=== PATIENT | female | born 1945 | race Caucasian/White ===

== ENCOUNTER 2023-11-30 09:55 | Outpatient (AMB) | payer MEDICARE, SELFPAY ==
--- NOTE | 2023-11-30 10:01 | A.OFFVIS_ITS ---
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 The patient does not have any complaints no vulvar irritation was prescribed nystatin/triamcinolone chronically 3 times a week for few years. No history of vulvar lesions, discolorations or abnormal Pap smears PFSH Medical History Osteopenia Arthritis Surgical History H/O hand surgery History of bunionectomy Hx of hysterectomy H/O eye surgery Family History Mother Heart disease Heart attack Father HTN (hypertension) Prostate cancer Brother Prostate cancer Sister Uterus cancer Breast cancer Social History Household Members Other:: daughter Housing: House Alcohol intake: never Patient Tobacco Use Status: Never used Tobacco Current occupational status: retired Sexually active: No Sexual orientation: Straight/Heterosexual Gender identity: Female Female Reproductive History Menstrual Total pregnancies: 2 Full term: 2 Number of Living Children: 2 Review of Systems Const All systems reviewed & are unremarkable except as noted in HPI and below Physical Exam Vital Signs: Last Vital Signs BP 120/70 11/30/23 10:03 BMI result Body Mass Index 29.9 General: Yes no CVA tenderness External Female Exam: normal external appearance and normal appearance of the urethra Speculum Exam - Vagina: normal appearance of the vagina, normal palpation, no lesions and no masses Speculum Exam - Cervix: normal appearance of the cervix, normal palpation, no lesions, no masses and nontender Bimanual exam- vagina & uterus: normal bimanual exam, normal palpation, uterine size normal, normal palpation, uterine shape normal, No Cervical tenderness present and non-tender Bimanual Exam- Adnexa, other: normal adnexae Back/Spine/Pelvis Back: no CVA tenderness Assessment & Plan Assessment & Plan (1) Normal vulvar exam: Code(s): Z01.419 - Encounter for gynecological examination (general) (routine) without abnormal findings Category: Medical Plan: Discussed with the patient the normal findings on pelvic exam with no evidence of vulvar pathology no leukoplakia lesions or any abnormalities. Recommended discontinuation of nystatin/triamcinolone cream. Instructions given the patient to call in case of any change or any new symptoms/irritation/lesions. All questions answered, the patient verbalized understanding Coding Level of Care Code New Pt Level 3 (28393) Diagnoses Normal vulvar exam Z01.419
[2023-11-30 10:03] VITALS: BP 120/70; BMI 29.9
== END 2023-11-30 14:21 | disposition home or self-care (01) ==
LOC: HO.HWS 09:55
PROVIDERS: PCP Internal Medicine; Visit Provider Obstetrics & Gynecology
DX: Z01.419 Encounter for gynecological examination (general) (routine) without abnormal findings (principal); Z71.1 Person with feared health complaint in whom no diagnosis is made
CPT/HCPCS: 99203

== ENCOUNTER → 2023-11-30 09:55 | Outpatient (BNVA) | payer MEDICARE, SELFPAY | PROVIDERS: PCP Internal Medicine; Visit Provider Obstetrics & Gynecology | DX: Z01.419 Encounter for gynecological examination (general) (routine) without abnormal findings (principal) | CPT/HCPCS: 99202 ==